=== PATIENT | female | born 1995 | race Caucasian/White ===

== ENCOUNTER 2019-02-28 10:33 | Observation (INO) | payer SELFPAY ==
[~2019-02-28] VITALS: Ht 162.6 cm; Wt 72.6 kg
[2019-02-28 10:45] VITALS: BP 135/79; Ht 162.6 cm; Wt 72.6 kg
[2019-02-28] MEDS ORDERED: RANITIDINE HCL 150 MG TAB PO ONE (11:20)
[2019-02-28 11:51] LABS: PLATELET COUNT, AUTOMATED 261 K/uL (150-450)
--- NOTE | 2019-02-28 13:11 | RADIOLOGY IMAGING REPORT ---
FACILITY: [facility] PATIENT NAME: Milvia Morillo : 1995 MR: [id number] V: [id number] EXAM DATE: ORDERING PHYSICIAN: MOLINA MICHAUD TECHNOLOGIST: Location: [facility] Patient: Milvia Morillo : 1995 Visit/Account:[id number] Date of Sevice: 02/28/2019 ADDENDUM #1 ADDENDUM: Results were called to Dr. MOLINA MICHAUD on 02/28/2019 1:11PM. Report Dictated By: Manny Cummins at 02/28/2019 1:13 PM Report E-Signed By: Manny Cummins at 02/28/2019 1:14 PM ORIGINAL REPORT OB TRANSVAG W TRANSABD COMPARISON: None. HISTORY: Limited care, vaginal pressure , LMP 08/12/2018 FINDINGS: NUMBER: One. HEART RATE: 163 BPM POSITION: Variable, mostly breech with spine toward maternal left PLACENTA LOCATION: Anterior. No previa. AMNIOTIC FLUID: YUSUF 14.94 cm; MVP 6.26 cm. CERVIX: Assessed with transvaginal technique. 3.4 cm length (image 49). The most distal/caudal 1.7 c m of the cervix is normal in appearance. The proximal/cranial half of the cervix however demonstrates parallel bands of anechoic tissue by an isoechoic linear band of tissue. Morphologically, this is suspicious for Y-shaped cervical funneling however the linear band of tissue centrally is unu sual and it is conceivable that this simply represents prominent, anechoic endocervical glands rather than funneling. The following growth parameters were measured on today's exam: SIZE DATE PERCENTILE Individual growth parameter percentiles were calculated by the ultrasound machine at the time o f study. BPD BIPARIETAL DIAMETER: 7.18 cm 28 weeks 6 days 46 HEAD CIRCUMFERENCE: 26.69 cm 29 weeks 1 day 32 ABD CIRCUMFERENCE: 24.93 cm 29 weeks 2 days 61 FEMUR LENGTH: 5.45 cm 28 weeks 6 days 42 ESTIMATED WEIGHT: 1320 grams, plus minus 193 grams . This is in the the 54th percentile on th e Hadlock chart. MENSTRUAL AGE/LEI: 28 weeks 4 days 05/19/2019 ULTRASOUND AGE/LEI: Average ultrasound age (AUA): 29 weeks 1 day with an LEI of 05/15/2019 based on today's measurements IMPRESSION: Single viable intrauterine in variable presentation, measuring 29 weeks 1 day by today's ultrasound with estimated due date 05/15/2019 by today's ultrasound. The placenta is anterior without previa. 3.4 cm length cervix with possible Y-shaped funneling although the appearance is somewhat atypical (s ee description above). Prominent endocervical glands within the proximal/cranial half of the cervix c ould cause a similar appearance. Report Dictated By: Manny Cummins at 02/28/2019 12:47 PM Report E-Signed By: Manny Cummins at 02/28/2019 1:05 PM WSN:[id number]
[2019-02-28] MEDS ORDERED: PREN-127 PO (14:01)
[2019-02-28] MEDS ORDERED: FERR160T25 PO (14:05)
--- NOTE | 2019-02-28 14:19 | History & Physical ---
History of Present Illness Age of Patient: 23 : 8 Para or TPAL: 1061 EDC per LMP: May 19, 2019 EDC per U/S: May 19, 2019 Estimated Gestational Age: 28.4 Chief Complaint No movement x "several days" History of Present Illness Mrs. Morillo is a 23yo , LEI 05/19/2019 per patient report, at 28.4 who presents to labor and delivery with complaint of no movement x several days. Mrs. Morillo recently moved to [place] from [place], [place] where she last received care on December 31, 2018. See contact information for physician below, attempted call but office not open on Saturday therefore antepartum records unavailable. She reports that she is having mild right-sided musculoskeletal shoulder pain that she has had in the past, and also reports symptoms of reflux that have not responded to Tums. She denies fevers/chills, she dysuria, frequency or urgency, she denies nausea/emesis, she denies vision changes, RUQ pain. She denies increased vaginal discharge or vaginal bleeding. She does report vaginal pressure, "feels like baby is dancing on my bladder." She denies contractions or crampy abdominal pain. Mrs. Morillo is living in a local hotel with her and 17mo old son. She reports that they are both currently looking for work in [place]. She states that they do not have family or friends here, but would like to live in this area of the country. Mrs. Morillo denies intimate partner violence. She denies drug, alcohol or tobacco use and states that her also does not use drugs, tobacco or alcohol. She states that they decided to leave [place] due to their network of friends getting into drug use and they didn't want to be around that. She has not yet signed up for [place] Medicaid and has not yet chosen a care provider. In terms of this , Mrs. Morillo reports that it has been uncomplicated save for mild anemia for which she takes iron supplementation. She reports having an anatomy ultrasound that was normal and revealed that she was having a female infant. Antepartum Issues: 1. 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 Pierre, 2. H/o GHTN with last , induced at 37 weeks for this issue, no HTN outside 3. H/o recurrent miscarriage per patient report. Six first trimester losses since age 21, no D&C, no work-up History Patient's Blood Type: drawn and pending Rubella Status: drawn and pending Group B Strep Screen: Unknown Miscellaneous Screens/Cultures: HIV negative, RPR, Hep BSAg, GC/CT drawn and pending Obstetrical History: 08/11/2017 37.2 weeks male 7'11" epidural, induced for "borderline preeclampsia," remained in house for 3 days for management of HTN first tri loss x 6 Past Medical History: seasonal allergies/asthma, mild, no meds depression/anxiety/PTSD/ADHD -- mild, no meds since age 18, no suicide attempts or self-harm history eczema GERD History of Gestational HTN' Homelessness/unstable housing Allergies: Coded Allergies: Latex, Natural Rubber (Unverified Allergy, Mild, rash, 02/28/19) per patient report Social History: to "Piotr." Has 17 month old son, and has custody of this child. Living in a local hotel. History of tobacco use, quit 2 years ago. No acohol or drug use. Denies intimate partner violence. Med Rec Home Meds Active Scripts Vits W-Ca,Fe,Fa(<1MG) ( VITAMINS) 1 Each Tablet, 1 EACH PO DAILY for 90 Days, #90 TAB 1 Refill Prov:MOLINA MICHAUD MD 02/28/19 Review of Systems Constitutional: No Fever, No Weight Loss, No Weight Gain, No Chills, No Night Sweats, No Other Eyes: No Vision Change, No Loss of Vision, No Photophobia, No Other ENT: No Hearing Loss, No Sinus Congestion, No Sore Throat, No Ear Ache, No Tinnitus, No Other Cardiovascular: No Chest Pain, No Palpitations, No Orthostatic Hypotension, No Other Respiratory: No Shortness of Breath, No Cough, No Wheezing, No Other Gastrointestinal: No Nausea, No Vomiting, No Diarrhea, No Dysphagia, No Constipation, No Early Satiety, No Hematemesis, No Hematochezia, No Melena, No Abdominal Pain; Other (reflux) Genitourinary: No Dysuria, No Hematuria, No Urinary Incontinence, No Other Musculoskeletal: Pain (R shoulder) Psychiatric: No Depression, No Anxiety, No Other Exam General Exam Vital Signs Vital Signs Date Time Temp Pulse Resp B/P (MAP) Pulse Ox O2 Delivery O2 Flow Rate FiO2 02/28/19 10:45 97.8 102 15 135/79 (97) 94 Room Air General Apperance: Alert/Awake/No Acute Distress Neuro: No Gross deficits Cardiovascular: Regular Rate and Rhythm Respiratory: No Respiratory Distress, Clear to Auscultation Abdomen: Soft, Non-Tender, Non-Distended, Gravid - Non-Tender Extremities: No Cyanosis,Clubbing or Edema Integumentary: Skin Intact without Lesions or Rash Psychological: Alert & Oriented X3, Appropriate Mood & Affect Uterine Contractions(Q min): 0 UC Resting Tone: Soft Fetus Feeling Movement?: Yes (after placed on monitor) Estimated Weight(grams): 1321 Heart Tones: 150 Heart Tone Variabilty: Moderate FHT Accelerations: 10X10 FHT Decelerations: None FHT Category: I (AGA) Medical Decision Making Data Points Result Diagram: 02/28/19 1132 02/28/19 1132 Imaging Ultrasound/Imaging AGA 1320g anterior placenta, cervix 3.4cm with prominent endocervical glands Pre-Admit Course Medical Record Review: No VTE Prophylasis: Adult Deep Vein Thrombosis/Pulmonary: No Pharmacological Contraindicati: Pt at Low Risk for VTE Mechanical Contraindications: Pt at Low Risk for VTE Assessment and Plan Problems: (1) Decreased movement affecting management of in third trimester Status: Acute Assessment & Plan: 23yo at 28.4 who presents with decreased movement. testing reassuring, category 1 tracing and AGA. Pt reported some increased vaginal pressure, no contractions on monitor, cervical length 3.4 cm with prominent endocervical glands -- reviewed images and does not look like funneling. No e/o labor. Also, unregistered. Routine labs pending, and limited OB ultrasound done. Patient encouraged to register for care and for [place] Medicaid. GERD sx, received ranitidine and sx improved. Shoulder pain stable. Allow discharge home with labor precautions and plans to register for care. Problem Qualifiers (1) Decreased movement affecting management of in third trimester: Fetus number: single or unspecified fetus Qualified Codes: O36.8130 - Decreased movements, third trimester, not applicable or unspecified MOLINA MICHAUD MD Feb 28, 2019 14:19
--- NOTE | 2019-02-28 14:22 | OB/GYN Discharge Summary ---
Discharge Summary Reason for Hosp/Final Diag: (1) Decreased movement affecting management of in third trimester Status: Acute Hospital Course & Plan: 23yo at 28.4 who presents with decreased movement. testing reassuring, category 1 tracing and AGA. Pt reported some increased vaginal pressure, no contractions on monitor, cervical length 3.4 cm with prominent endocervical glands -- reviewed images and does not look like funneling. No e/o labor. Also, unregistered. Routine labs pending, and limited OB ultrasound done. Patient encouraged to register for care and for [place] Medicaid. GERD sx, received ranitidine and sx improved. Shoulder pain stable. Allow discharge home with labor precautions and plans to register for care. Lates Vital Signs Vital Signs Date Time Temp Pulse Resp B/P (MAP) Pulse Ox O2 Delivery O2 Flow Rate FiO2 02/28/19 10:45 97.8 102 15 135/79 (97) 94 Room Air Weight (Pounds): 160 Result Diagram: 02/28/19 1132 02/28/19 1132 Condition: Improved Discharge: Home Home Meds Active Scripts Vits W-Ca,Fe,Fa(<1MG) ( VITAMINS) 1 Each Tablet, 1 EACH PO RADHA Y for 90 Days, #90 TAB 1 Refill Prov:MOLINA MICHAUD MD 02/28/19 Reported Medications Ferrous Sulfate, Dried (IRON) 160 Mg Tablet.er, PO DAILY 02/28/19 [facility] [phone] (either provider group), [facility] [place] [phone] Follow up in: 5-7 days Discharge Diet: As Tolerates Discharge Activity: As Tolerates Problem Qualifiers (1) Decreased movement affecting management of in third trimester: Fetus number: single or unspecified fetus Qualified Codes: O36.8130 - Decreased movements, third trimester, not applicable or unspecified MOLINA MICHAUD MD Feb 28, 2019 14:22
== END 2019-02-28 14:19 | disposition home or self-care (01) ==
LOC: OB 10:33
PROVIDERS: ADMIT Obstetrics & Gynecology; ATTEND Obstetrics & Gynecology
DX: O36.8130 Decreased fetal movements, third trimester, not applicable or unspecified (principal); Z3A.28 28 weeks gestation of pregnancy; K21.9 Gastro-esophageal reflux disease without esophagitis; Z87.891 Personal history of nicotine dependence; Z59.0 Homelessness
CPT/HCPCS: 36415; 76817; 86703; 87491; 87591; G0378; G0379; 82310; 82374; 82435; 82565; 82947; 84132; 84295; 84520; 85025; 86592; 86762; 86850; 86900; 86901; 87340

== ENCOUNTER 2019-03-08 17:13 | Outpatient (CLI) | payer SELFPAY ==
[~2019-03-08] VITALS: Ht 162.6 cm; Wt 69.9 kg
[~2019-03-08 17:13] MED LIST: FERR160T25 PO; PREN-127 PO
[2019-03-08 17:38] VITALS: BP 137/67; Ht 162.6 cm; Wt 69.9 kg
[2019-03-08] MEDS ORDERED: LR(*) 1000 ML BAG 1,000 ML ONE (17:54)
[2019-03-08] MEDS ORDERED: LR(*) 1000 ML BAG 1,000 ML IV PRN (17:55)
[2019-03-08 18:33] LABS: PLATELET COUNT, AUTOMATED 265 K/uL (150-450)
--- NOTE | 2019-03-08 18:46 | History & Physical ---
History of Present Illness Age of Patient: 23 : 8 Para or TPAL: 1061 EDC per LMP: May 19, 2019 Estimated Gestational Age: 29.5 Chief Complaint IUP at 29 5/7. Blurry vision, mild headache, RUQ pain. Good FM, no LOF, VB or CTX. PT stats symptoms have been progressively getting worse since she was seen in triage last on 02/28/19 History Patient's Blood Type: A Positive Rubella Status: Immune Allergies: Coded Allergies: Latex, Natural Rubber (Unverified Allergy, Mild, rash, 02/28/19) per patient report Social History: to "Piotr." Has 17 month old son, and has custody of this child. Living in a local hotel. History of tobacco use, quit 2 years ago. No acohol or drug use. Denies intimate partner violence. Med Rec Home Meds Active Scripts Vits W-Ca,Fe,Fa(<1MG) ( VITAMINS) 1 Each Tablet, 1 EACH PO DAILY for 90 Days, #90 TAB 1 Refill Prov:MOLINA MICHAUD MD 02/28/19 Reported Medications Ferrous Sulfate, Dried (IRON) 160 Mg Tablet.er, PO DAILY 02/28/19 Review of Systems Constitutional: No Fever, No Weight Loss Neurological: Other (mild headache ) Eyes: Vision Change (blurred vision) Cardiovascular: No Chest Pain, No Palpitations Respiratory: No Shortness of Breath, No Cough Gastrointestinal: No Nausea, No Vomiting; Abdominal Pain (RUQ ) Genitourinary: No Dysuria, No Hematuria Exam General Exam Vital Signs Vital Signs Date Time Temp Pulse Resp B/P (MAP) Pulse Ox O2 Delivery O2 Flow Rate FiO2 03/08/19 17:38 97.9 102 16 137/67 (90) 95 Room Air General Apperance: Alert/Awake/No Acute Distress Neuro: No Gross deficits, Other (2+ b/l patellar reflexes, no clonus) ENT: Normal Cardiovascular: Regular Rate and Rhythm Respiratory: No Respiratory Distress, Clear to Auscultation Abdomen: Gravid - Non-Tender, RUQ Tender (Very mild, only with deep palpation ) Extremities: No Cyanosis,Clubbing or Edema Psychological: Alert & Oriented X3, Appropriate Mood & Affect Uterine Contractions(Q min): 0 Fetus Heart Tones: 140 Heart Tone Variabilty: Moderate FHT Accelerations: Present FHT Decelerations: None FHT Category: I Medical Decision Making Data Points Result Diagram: 03/08/19180803/08/191808 Assessment and Plan PATIENT REGISTRATION SPECIALIST Assessment: Stable PATIENT REGISTRATION SPECIALIST Plan: Discharge Home Today (Will give 1 Liter fluid and d/c to home, pt to follow up in office linda. ) Problems: (1) Dehydration during Status: Acute Assessment & Plan: PT encouraged to avoid sun exposure, sunscreen advised and wide brim hat. Hydration stressed due to , summer weather and high altitude. PT needs to establish care in our office. Pt encouraged to make appt LINDA to have routine care and 1 hr GTT, labs were done on 02/28 and again today. [facility] labs reviewed by me and are wnl. (2) Altitude sickness preventative measures Status: Acute Assessment & Plan: Education provided on safety at high altitude for . Hydration stressed. ARTEMIO FERREIRA DO Mar 08, 2019 18:46
== END 2019-03-08 19:45 | disposition home or self-care (01) ==
LOC: OB 17:13 → L&D 17:13 → UNDOADMIN 17:13 → OB 17:13 → L&D 19:45 → UNDODISIN 19:45 → EDSTATUS 03-11 19:54
PROVIDERS: ATTEND Obstetrics & Gynecology
DX: O26.893 Other specified pregnancy related conditions, third trimester (principal); Z3A.29 29 weeks gestation of pregnancy; Z87.891 Personal history of nicotine dependence; E86.0 Dehydration; H53.8 Other visual disturbances; R10.11 Right upper quadrant pain; R51 Headache
CPT/HCPCS: 36415; 59025; 80305; 81001; 83615; 84550; 85025; 99213; J7120; 82040; 82247; 82310; 82374; 82435; 82565; 82947; 84075; 84132; 84155; 84295; 84450; 84460; 84520

== ENCOUNTER 2019-03-21 16:57 | Outpatient (CLI) | payer SELFPAY ==
[2019-03-21 17:00] VITALS: BP 124/71
--- NOTE | 2019-03-21 18:12 | History & Physical ---
History of Present Illness Age of Patient: 23 : 8 Para or TPAL: 1071 EDC per LMP: May 19, 2019 Estimated Gestational Age: 31 (5/7) Chief Complaint "vaginal itching and burning" History of Present Illness Pt presents to OB with report of vaginal itching and burning that started 2 days ago. Denies vaginal discharge but reports some odor. Desires STI testing, states she is uncertain if her has been faithful. Denies recent antibiotics, douching. Had intercourse about 72 hours ago. Pt has recently moved to [place], is establishing OB care next week. Has had care initiated in [facility]. History Patient's Blood Type: A Positive Miscellaneous Screens/Cultures: has had a pap and GC/CT in [place] and were "negative" Obstetrical History: Pt reports 8 pregnancies and 1 living child . Pt states she has had 6 miscarriages. Last was 18 months ago Past Medical History: Denies acute or chronic illness but does states she has ADHD unmedicated. Allergies: Coded Allergies: Latex, Natural Rubber (Unverified Allergy, Mild, rash, 02/28/19) per patient report Social History: to "Piotr." Has 17 month old son, and has custody of this child. Living in a local hotel. History of tobacco use, quit 2 years ago. No acohol or drug use. Denies intimate partner violence. Med Rec Home Meds Active Scripts Vits W-Ca,Fe,Fa(<1MG) ( VITAMINS) 1 Each Tablet, 1 EACH PO DAILY for 90 Days, #90 TAB 1 Refill Prov:MOLINA MICHAUD MD 02/28/19 Reported Medications Ferrous Sulfate, Dried (IRON) 160 Mg Tablet.er, PO DAILY 02/28/19 Review of Systems All Systems Reviewed/Normal: Yes, Except as Noted Genitourinary: Dysuria, Hematuria, Urinary Incontinence, Other (vaginal itching and burning, denies vaginal bleeding ,l) Exam General Exam General Apperance: Alert/Awake/No Acute Distress Neuro: No Gross deficits Abdomen: Soft, Non-Tender, Non-Distended, Gravid - Non-Tender : No CVA Tenderness Psychological: Alert & Oriented X3 Vaginal Discharge/Fluid?: Moderate Amount (white frothy discharge, non foul odor noted. ) Uterine Contractions(Q min): 0 UC Resting Tone: Soft Fetus Feeling Movement?: Yes Heart Tones: 135 Heart Tone Variabilty: Moderate FHT Accelerations: 15X15 FHT Decelerations: None Medical Decision Making VTE Prophylasis: Adult Deep Vein Thrombosis/Pulmonary: No Pharmacological Contraindicati: Pt at Low Risk for VTE Mechanical Contraindications: Pt at Low Risk for VTE Assessment and Plan Problems: (1) Supervision of normal IUP (intrauterine ) in multigravida (2) Vagina itching (3) Vaginal burning Status: Acute Assessment & Plan: A/P 1. Maternal well being-SIUP at 31 5/7 vaginal itching & burning; obtain wet mount and GC/CT 2. well being Cat 1 FHT 3. complication recent move Problem Qualifiers (1) Supervision of normal IUP (intrauterine ) in multigravida: Trimester: third trimester Qualified Codes: Z34.83 - Encounter for supervision of other normal , third trimester DARÍO CHAMBERS CNM Mar 21, 2019 18:12
--- NOTE | 2019-03-21 19:01 | OB/GYN Discharge Summary ---
Discharge Summary Reason for Hosp/Final Diag: (1) Supervision of normal IUP (intrauterine ) in multigravida (2) Vagina itching Hospital Course & Plan: Assessment/Plan 1. Will rx Flagyl 500 mg PO BID x 7 days to [facility]. 2. Reviewed warning signs of problems 3. Follow up on Saturday for routine OB appt. (3) Vaginal burning Status: Acute Weight (Pounds): 154 Condition: Improved Discharge: Home, Self [facility] Meds Active Scripts Vits W-Ca,Fe,Fa(<1MG) ( VITAMINS) 1 Each Tablet, 1 EACH PO DAILY for 90 Days, #90 TAB 1 Refill Prov:MOLINA MICHAUD MD 02/28/19 Reported Medications Ferrous Sulfate, Dried (IRON) 160 Mg Tablet.er, PO DAILY 02/28/19 [facility] up with: [facility] [place] [phone] Follow up in: Keep scheduled appoint Discharge Diet: As Tolerates Discharge Activity: Pelvic Rest Problem Qualifiers (1) Supervision of normal IUP (intrauterine ) in multigravida: Trimester: third trimester Qualified Codes: Z34.83 - Encounter for supervision of other normal , third trimester DARÍO CHAMBERS CNM Mar 21, 2019 19:01
[2019-03-21 19:04] VITALS: BP 137/79
[2019-03-21] MEDS ORDERED: METRONIDAZOLE 500 MG TABLET PO ONE (19:15)
[2019-03-23 22:30] VITALS: BMI 24.5
== END 2019-03-21 19:11 | disposition home or self-care (01) ==
LOC: OB 16:57 → L&D 16:57 → UNDOADMOB 16:57 → OB 16:57 → UNDODISOB 19:11 → L&D 19:11 → EDSTATUS 03-24 06:56
PROVIDERS: ATTEND Student in an Organized Health Care Education/Training Program
DX: Z34.83 Encounter for supervision of other normal pregnancy, third trimester (principal); Z3A.31 31 weeks gestation of pregnancy
CPT/HCPCS: 59025; 81001; 87210; 87491; 87591; 99213; G0378; G0379

== ENCOUNTER 2019-03-23 22:08 | Outpatient (CLI) | payer SELFPAY ==
[~2019-03-23] VITALS: Ht 162.6 cm; Wt 64.9 kg
[2019-03-23 22:30] VITALS: BP 136/65; Ht 162.6 cm; Wt 64.9 kg
[2019-03-23] MEDS ORDERED: APAP/HYDROCODONE 325/5 TAB PO ONE (22:45)
[2019-03-23] MEDS: LR(*) 1000 ML BAG 1,000 ML IV PRN ×2 (23:06→23:26)
[2019-03-23] MEDS ORDERED: cefTRIAXone 1 GM VIAL IVP ONE (23:15)
[2019-03-24] MEDS ORDERED: NIFEdipine 10 MG CAP PO ONE (01:00)
[2019-04-02] MEDS ORDERED: DIPH0.5S2 IM (15:50)
== END 2019-03-24 01:06 | disposition home or self-care (01) ==
LOC: UNDOADMOB 22:08 → L&D 22:08 → OB 22:08 → UNDODISOB 03-24 01:06 → L&D 03-24 01:06 → EDSTATUS 03-27 08:39
PROVIDERS: ATTEND Student in an Organized Health Care Education/Training Program
DX: O47.03 False labor before 37 completed weeks of gestation, third trimester (principal); Z3A.31 31 weeks gestation of pregnancy
CPT/HCPCS: 59025; 81001; 99213; J0696; J7120; G0378; G0379

== ENCOUNTER 2019-03-29 16:16 | Outpatient (CLI) | payer SELFPAY ==
[~2019-03-29] VITALS: Ht 162.6 cm; Wt 69.9 kg
[2019-03-29 16:34] VITALS: BP 131/71; Ht 162.6 cm; Wt 69.9 kg
[2019-03-29] MEDS: LR(*) 1000 ML BAG 1,000 ML IV PRN ×2 (17:15→19:04)
[2019-03-29] MEDS ORDERED: ACETAMINOPHEN 500 MG TAB PO ONE (19:30)
[2019-03-29] MEDS ORDERED: diphenhydrAMINE 25 MG CAP PO ONE (20:40)
[2019-04-02] MEDS ORDERED: DIPH0.5S2 IM (15:50)
== END 2019-03-29 20:42 | disposition home or self-care (01) ==
LOC: UNDOADMOB 16:16 → OB 16:16 → INTOOBSV 16:16 → OB 16:16 → L&D 16:16 → UNDODISOB 20:42 → L&D 20:42 → EDSTATUS 03-31 07:18
PROVIDERS: ATTEND Obstetrics & Gynecology
DX: O47.03 False labor before 37 completed weeks of gestation, third trimester (principal); Z3A.32 32 weeks gestation of pregnancy
CPT/HCPCS: 59025; 80305; 81001; 84112; 99213; J7120; G0378; G0379

== ENCOUNTER → 2019-04-02 | Outpatient (CLI) | payer SELFPAY ==
[2019-03-29 16:34] VITALS: BMI 26.4
[~2019-04-02] MED LIST changes: +DIPH0.5S2 IM
[2019-04-02 17:02] LABS: PLATELET COUNT, AUTOMATED 302 K/uL (150-450)
== END ==
LOC: LAB 15:17
PROVIDERS: ATTEND Obstetrics & Gynecology
DX: O16.2 Unspecified maternal hypertension, second trimester (principal)
CPT/HCPCS: 36415; 82040; 82247; 82310; 82374; 82435; 82565; 82947; 82950; 84075; 84132; 84155; 84156; 84295; 84450; 84460; 84520; 85025; 86703

== ENCOUNTER → 2019-04-04 | Outpatient (CLI) | payer SELFPAY ==
[2019-03-29 16:34] VITALS: BMI 26.4
== END ==
LOC: LAB 15:38
PROVIDERS: ATTEND Obstetrics & Gynecology
DX: O16.2 Unspecified maternal hypertension, second trimester (principal)
CPT/HCPCS: 82575

== ENCOUNTER → 2019-04-06 | Outpatient (CLI) | payer SELFPAY ==
[2019-03-29 16:34] VITALS: BMI 26.4
--- NOTE | 2019-04-06 11:13 | RADIOLOGY IMAGING REPORT ---
FACILITY: [facility] PATIENT NAME: Milvia Morillo : 1995 MR: [id number] V: [id number] EXAM DATE: ORDERING PHYSICIAN: ARTEMIO FERREIRA TECHNOLOGIST: Location: [facility] Patient: Milvia Morillo : 1995 Visit/Account:[id number] Date of Sevice: 04/06/2019 EXAMINATION: Ultrasound transabdominal OB > 14 weeks with anatomic evaluation HISTORY: Late care COMPARISON: February 28, 2019 TECHNIQUE: Transabdominal imaging was performed for assessment of the fetus and maternal pelvic structures. T ransvaginal imaging was not performed. FINDINGS: Placenta: Fundal and anterior without previa. Uterus: Gravid, otherwise normal Cervix: Long and closed. Maternal Ovaries: Not visualized. Maternal and other adnexa findings: Not visualized Intrauterine gestations: One. presentation: Breech presentation with spine towards the maternal left heart rate: Normal and regular at 136 bpm Amniotic fluid index: 20.48 cm Largest amniotic fluid pocket: 8.85 cm Gestational Parameters: BPD: 8.24 cm 33 weeks/ one days, 26% HC: 30.64 cm 34 weeks/ one days, 21% AC: 29.76 cm 33 weeks/ six days, 50% FL: 6.83 cm 35 weeks/ one days, 72% Average ultrasound age (AUA): 34 weeks/one days, LEI 05/17/2019 Estimated gestational age by LMP: 33 weeks/six days, LEI 05/19/2019 Estimated weight (EFW): 2349 grams +/- 343 grams EFW for LMP: 50th percentile Anatomic Survey: Anatomic structure not evaluated IMPRESSION: Single viable fetus in breech presentation with an estimated gestational age by measurem ents of 34 weeks and one day. Estimated gestational age by LMP is 33 weeks and six days. Estimated weight is 2349 g which is equivalent to the 50th percentile The YUSUF measured 20.48 cm with the largest pocket measuring 8.85 cm Report Dictated By: Erika Berumen MD at 04/06/2019 11:00 AM Report E-Signed By: Erika Berumen MD at 04/06/2019 11:05 AM WSN:[email or web address]
== END ==
LOC: RAD 09:58
PROVIDERS: ATTEND Obstetrics & Gynecology
DX: O09.30 Supervision of pregnancy with insufficient antenatal care, unspecified trimester (principal)

== ENCOUNTER → 2019-04-12 | Outpatient (CLI) | payer SELFPAY ==
[2019-03-29 16:34] VITALS: BMI 26.4
[~2019-04-12] MED LIST changes: +BLOO-1511 MC; +BLOO-960 MC; +LANC-714 MC
== END ==
LOC: LAB 10:22
PROVIDERS: ATTEND Obstetrics & Gynecology
DX: O99.810 Abnormal glucose complicating pregnancy (principal)
CPT/HCPCS: 36415; 82951; 82952

== ENCOUNTER → 2019-04-14 | Outpatient (CLI) | payer SELFPAY ==
[2019-03-29 16:34] VITALS: BMI 26.4
[2019-04-14 12:17] LABS: PLATELET COUNT, AUTOMATED 307 K/uL (150-450)
== END ==
LOC: LAB 11:51
PROVIDERS: ATTEND Advanced Practice Midwife
DX: O26.899 Other specified pregnancy related conditions, unspecified trimester (principal); R10.11 Right upper quadrant pain
CPT/HCPCS: 36415; 82040; 82247; 82310; 82374; 82435; 82565; 82570; 82947; 84075; 84132; 84155; 84156; 84295; 84450; 84460; 84520; 85025

== ENCOUNTER 2019-04-16 15:07 | Inpatient (IN) | payer SELFPAY ==
[2019-03-29 16:34] VITALS: BMI 26.4
== END 2019-04-16 17:48 | disposition home or self-care (01) | DRG 833 ==
LOC: OB 15:07
PROVIDERS: ADMIT Obstetrics & Gynecology; ATTEND Obstetrics & Gynecology
DX: O26.893 Other specified pregnancy related conditions, third trimester (principal); Z3A.35 35 weeks gestation of pregnancy
CPT/HCPCS: 81001